=== PATIENT | female | born 1950 | race Caucasian/White ===

== ENCOUNTER 2022-08-25 09:15 | Day surgery (SDC) | payer OTHER ==
[~2022-08-25] VITALS: Ht 165.1 cm; Wt 85.1 kg
[2022-08-25] MEDS ORDERED: ESOM20 PO (09:59)
--- NOTE | 2022-08-25 11:31 | NUR ---
08/25/22 1131 Gunnar White 150 ML FLUID DEFICIT, MDS NOTIFIED.
--- NOTE | 2022-08-25 13:02 | NUR ---
08/25/22 Saniya Zambrano TOTAL OF 25 MCG FENTANYL GIVEN FOR PAIN. GIVEN WHILE IN PACU.
[2022-08-25 13:42] VITALS: BP 147/76
== END 2022-08-25 13:36 | disposition home or self-care (01) ==
LOC: ORSCSDS 09:15
PROVIDERS: Obstetrics & Gynecology
PROC: 0UDB8ZX Extraction of Endometrium, Via Natural or Artificial Opening Endoscopic, Diagnostic (ICD-10-PCS; principal; 2022-08-25 11:00)
DX: N95.0 Postmenopausal bleeding (principal); N84.0 Polyp of corpus uteri; D25.9 Leiomyoma of uterus, unspecified; J45.909 Unspecified asthma, uncomplicated; R93.89 Abnormal findings on diagnostic imaging of other specified body structures; K21.9 Gastro-esophageal reflux disease without esophagitis; Z79.899 Other long term (current) drug therapy
CPT/HCPCS: 88305; J1100; J1885; J2250; J2405; J2704; J3010; J7120

== ENCOUNTER → 2023-04-28 | Outpatient (CLI) | payer OTHER ==
[~2023-04-28] MED LIST: ESOM20 PO
== END | disposition home or self-care (01) ==
LOC: LAB SHORT 08:03 → LAB 08:03
DX: L98.8 Other specified disorders of the skin and subcutaneous tissue (principal)
CPT/HCPCS: 88305